=== PATIENT | male | born 1950 | race Caucasian/White ===

== ENCOUNTER 2016-11-07 13:53 | Inpatient (IN) | payer MEDICARE ==
[~2016-11-07] VITALS: Ht 170.2 cm; Wt 78.0 kg
--- NOTE | 2016-11-07 13:58 | NUR ---
BBRA 877 coming from home complaining of generalized weakness and unable to eat. Pt gowned and placed on cont monitoring, nad rr even and unlabored. skin is warm and non diaphoretic. seen and evaluated by dr quintanilla
[2016-11-07] MEDS ORDERED: IV NS 0.9% 1,000 ML ONE (14:10)
[2016-11-07] MEDS ORDERED: IV SET PRIMARY PUMP SET 1 EA INFUS.SET MC ONE (14:10)
[2016-11-07 14:20] LABS: BASOPHILS # (AUTO) 0.1 /CMM (0.0-0.2); BASOPHILS % (AUTO) 1.9 % (0.0-2.0); EOSINOPHILS # (AUTO) 1.1 /CMM (0.0-0.7); EOSINOPHILS % (AUTO) 16.7 % (0.0-6.0); HEMATOCRIT 50 % (39-51); HEMOGLOBIN 16.9 g/dL (13.5-17.5); LYMPHOCYTES # (AUTO) 1.1 /CMM (0.8-4.8); LYMPHOCYTES % (AUTO) 15.5 % (20.0-44.0); MEAN CORPUSCULAR HEMOGLOBIN 30 PG (26.0-33.0); MEAN CORPUSCULAR HGB CONC 34 g/dl (31.0-36.0); MEAN CORPUSCULAR VOLUME 88 fL (80-96); MONOCYTES # (AUTO) 0.6 /CMM (0.1-1.30); MONOCYTES % (AUTO) 8.8 % (2.0-12.0); NEUTROPHILS % (AUTO) 57.1 % (43.0-81.0); PLATELET COUNT (AUTO) 141 /CMM (150-450); RDW COEFFICIENT OF VARIATION 13.7 (11.5-15.0); RED BLOOD CELL COUNT(AUTO) 5.71 MIL/uL (4.5-6.0); WHITE BLOOD COUNT (AUTO) 6.9 K/uL (4.3-11.0)
[2016-11-07 14:29] LABS: CREATININE 2.9 mg/dL (0.6-1.3); POTASSIUM 3.2 mmol/L (3.5-5.1)
[2016-11-07] MEDS ORDERED: IV NS 0.9% 1,000 ML BAG IV ONE ×2 (14:30→18:30)
[2016-11-07 14:34] LABS: INR 1.17 (0.87-1.13); PROTHROMBIN TIME 12.3 SECS (9.5-12.7)
[2016-11-07 14:37] LABS: TROPONIN I 0.184 ng/mL (0.00-0.056)
[2016-11-07 14:41] LABS: ALBUMIN 2.7 g/dL (3.4-5.0); BILIRUBIN,DIRECT 0.2 mg/dL (0.0-0.2); BILIRUBIN,TOTAL 0.5 mg/dL (0.2-1.0); TOTAL PROTEIN, SERUM 8.9 g/dL (6.4-8.2)
[2016-11-07 15:07] LABS: LACTIC ACID 1.9 mmol/L (0.4-2.0)
--- NOTE | 2016-11-07 15:11 | NUR ---
PT TRANSPORTED TO CT IN STABLE CONDITION
--- NOTE | 2016-11-07 15:53 | NUR ---
tele [phone]
[2016-11-07] MEDS ORDERED: POTASSIUM CHLORIDE 20 MEQ TAB.PRT.SR PO ONE ×5 (16:00→18:30)
[2016-11-07] MEDS ORDERED: SULFAMETH/TRIMETH 800/160 MG 1 UDTAB TABLET PO ONE ×3 (16:00→16:21)
[2016-11-07] MEDS ORDERED: ASPIRIN 325 MG TABLET PO ONE (16:00)
--- NOTE | 2016-11-07 16:00 | NUR ---
PT RESTING COMFORTABLY IN BED, NAD NOTED. NO CHANGE SINCE PRESENTATION. DENIES PAIN.
[2016-11-07] MEDS ORDERED: ASPIRIN 325 MG TABLET ONE ×2 (16:13→16:21)
--- NOTE | 2016-11-07 16:35 | NUR ---
Report given to Arjun JOHNSON for cont of care
--- NOTE | 2016-11-07 16:41 | NUR ---
transfferred pt to the floor via acls protocol
[2016-11-07 16:45] VITALS: BP 142/79
--- NOTE | 2016-11-07 17:12 | NUR ---
CRIMINAL COURT JUDGE ADMITTING NOTES PATIENT ADMITTED TO UNIT ART 1700H [facility]IA [employer] ALERT AND ORIENTED X3 WITH DIAGNOSIS OF GENERALIZED WEAKNESS AND UN-ABLE TO EAT X1 DAY AND POOR APPETITE FOR SEVERAL DAYS DUE TO WEAKNESS VERBALIZED BY PATIENT. PATIENT WITH SIGNIFICANT DIAGNOSIS OF HTN AND HIV WHICH IS UNTREATED. ABLE TO VERBALIZED NEEDS AND WANTS, NO COMPLAINTS OF PAIN AT THIS TIME. TRANSFERRED TO BED COMFORTABLY. ALL ROUTINE ASSESSMENT DONE. V/S CHECKED AND RECORDED. SKIN ASSESSMENT DONE AND NOTED WITH SUPERFICIAL SKIN TEAR TO LOWER LEFT BACK 1CM X 1CM. GENERALIZED RASH NOTED TO BODY AND FACE, DARK DISCOLORATION NOTED TO ANTERIOR LEFT LOWER LEG AND LEFT KNEE. PHOTOS TAKEN AND FILED IN THE CHART. PATIENT PLACED ON TELE-MONITORING WITH INITIAL READING OF SR WITH HR OF 79M NO COMPLAINTS OF CHEST PAIN. PATIENT ALSO PLACED ON 02 INHALATION VIA N/C @ 2LPM DUE TO MILD SOB ON EXERTION, 02 SAT 97%. CALL LIGHT KEEP WITHIN REACH, BED LOW AND LOCKED. ALLSAFETY MEASURES ENFORCED. WILL CONTINUE TO MONITOR ACCORDINGLY AND WILL ENDORSED TO CAMPGROUND ATTENDANT FOR CONTINUITY OF CARE.
--- NOTE | 2016-11-07 18:12 | NUR ---
RN NOTES POST SEPSIS ASSESSMENT UN-ABLE TO ASSESS AT THIS TIME BECAUSE IV FLUIDS OF NS FROM EMERGENCY ROOM TO IV ACCESS TO LEFT ANTECUBITAL AREA GAUGE 20 STILL WITH 500ML LEFT, NO SIGNS OF INFILTRATION NOTED TO SITE. IVF OF NS ORDERED @ 1830H WILL BE ADMINISTERED AFTER ER IV FLUIDS FINISHED. WILL ENDORSED TO RESISTANCE MACHINE WELDER SETTER TO HANG NEW ORDER OF IVF AND DO POST ASSESSMENT THEN WILL INFORMED MD ORDERED. Addendum: 11/07/16 at 2049 by ANNA MARIE DENNEY RN Amended: Links added.
[2016-11-07] MEDS ORDERED: ACETAMINOPHEN 650 MG/20.3 ML UDC NG PRN (18:30)
[2016-11-07] MEDS ORDERED: MORPHINE SULFATE INJ 2 MG/ML DISP.SYRIN IV PRN (18:30)
[2016-11-07] MEDS ORDERED: VANCOMYCIN 1 GM in IV D5W 250 ML IV ONE (18:30)
[2016-11-07] MEDS ORDERED: FEE PK DOSING 1 MIN EA MC ONE (18:43)
[2016-11-07] MEDS ORDERED: SECONDARY IV SET 1 EA INFUS.SET MC ONE ×2 (19:00→21:21)
--- NOTE | 2016-11-07 19:30 | NUR ---
TELE/RN NOTES RECEIVED PT. SITTING UP IN BED EATING DINNER. PT. IS AWAKE, ALERT AND ORIENTED X3. BREATHING EVEN AND UNLABORED ON 2LPM O2 VIA NC. PT. WITH NO SOB, RESPIRATORY DISTRESS OR COMPLAINTS OF PAIN NOTED AT THIS TIME. PT. WITH EXTERNAL MANAGER GENERATION, PRESENT AND INTACT CURRENT RHYTHM = SINUS RHYTHM HR 82. PT. WITH LEFT AC 20 GAUGE PERIPHERAL IV PRESENT, PATENT AND INTACT ADMINISTERING TO PT. 1L NS IV FLUID FROM THE ER WITH ABOUT 500 ML REMAINING IN THE BAG. PER DAYSHIFT NURSE DR. DHALIWAL ORDERED SEPSIS PROTOCOL ON PT. DAYSHIFT NURSE SCANNED THE BAG FOR IV FLUIDS HOWEVER THEY ARE NOT INFUSING YET DUE TO ER FLUIDS STILL INFUSING. PT. TOLERATING WELL. NO S/S OF FEVER OR PAIN NOTED AT THIS TIME. NO S/S OF INFILTRATION AT IV SITE. WILL ADMINISTER TO PT. IV FLUIDS ORDERED ONCE PREVIOUS ER FLUIDS ARE COMPLETED INFUSING. BED IN LOWEST POSITION, CALL LIGHT WITHIN REACH, WILL CONTINUE TO MONITOR.
[2016-11-07 20:00] VITALS: BP 135/73
[2016-11-07] MEDS ORDERED: VANCOMYCIN 1 GM in IV D5W 250 ML IV SCH (20:00)
--- NOTE | 2016-11-07 20:00 | NUR ---
TELE/RN NOTES PT. REFUSING VEGA CATHETER INSERTION AT THIS TIME. PT. STATES HE CAN VOID ON HIS OWN AND HE DOESN'T WANT IT. EDUCATED PT. ON IMPORTANCE OF MONITORING STRICT INTAKE AND OUTPUT. WILL CONTINUE TO MONITOR PT. URINE OUTPUT AND COLLECT URINE FOR URINE CULTURE WHEN PT VOIDS. PER REPAIRER HELPER TRAINING DEVELOPER PT. JUST VOIDED 200ML URINE IN URINAL. PT. URINE DISPOSED OF BEFORE SAMPLE COULD BE TAKEN FOR URINE CULTURE. WILL CONTINUE TO MONITOR.
[2016-11-07] MEDS: PIPERACILLIN /TAZOBACTAM 2.25 G in IV D5W 50 ML IV SCH (20:30)
--- NOTE | 2016-11-07 21:08 | NUR ---
TELE/RN NOTES NOTIFIED MD CERDA PT. IS ADMITTED FOR SEPSIS, INITIAL LACTIC ACID 1.9 MOST RECENT LACTIC ACID AT 1910 IS 1.3 PT. 1L IV BOLUS OF NS FROM THE ER JUST FINISHED ADMINISTERING TO PT. PT. WITH FEVER OF 100F. ADMINISTERED TO PT. TYLENOL 650MG PRN FEVER ORDERED AND IMPLEMENTED COOLING MEASURES. PT. VOMITED 10 MINUTES AFTER TYLENOL ADMINISTRATION. PER DR. CERDA CONTINUE TO MONITOR PT. AND CONTINUE WITH SEPSIS FLUID CHALLENGE PER PROTOCOL ORDERED. WILL CARRY OUT ORDERS AND WILL CONTINUE TO MONITOR PT.
--- NOTE | 2016-11-07 21:20 | NUR ---
TELE/RN NOTES NOTIFIED MD CERDA PT. REQUESTING NAUSEA MEDICATION. PT. WITH NO NAUSEA MEDICATION ORDERED AT THIS TIME. PER MD CERDA NEW ORDER: ZOFRAN 4MG IV Q6HR PRN NAUSEA/VOMITING. WILL CARRY OUT ORDER. WILL CONTINUE TO MONITOR.
[2016-11-07] MEDS ORDERED: ONDANSETRON HCL/PF 4 MG/2 ML VIAL IV PRN (21:30)
--- NOTE | 2016-11-07 21:35 | NUR ---
TELE/RN NOTES PT. STATES HE IS FEELING BETTER AND DOES NOT WANT NAUSEA MEDICATION AT THIS TIME. EDUCATED PT. TO NOTIFY NURSE IF HE BEGINS TO FEEL NAUSEOUS AND NAUSEA MEDICATION CAN BE ADMINISTERED AT THAT TIME IF WANTED BY PT. WILL CONTINUE TO MONITOR.
--- NOTE | 2016-11-07 22:30 | NUR ---
TELE/RN NOTES PT. TEMPERATURE TRENDING DOWN. PT. CURRENT TEMPERATURE IS 99.2F. WILL CONTINUE COOLING MEASURES AND WILL CONTINUE TO MONITOR. PT. STATES HE HAS NO NEEDS AT THIS TIME AND IS COMFORTABLE. WILL CONTINUE TO MONITOR.
[2016-11-08] VITALS: BP 135/88
[2016-11-08] MEDS ORDERED: PIPERACILLIN /TAZOBACTAM 3.375 G in IV D5W 50 ML IV SCH ×2
[2016-11-08] MEDS ORDERED: IV NS 0.9% 1,000 ML ONE (00:28)
--- NOTE | 2016-11-08 02:15 | NUR ---
TELE/RN NOTES PT. SEPSIS IV FLUIDS COMPLETED AND RE-ASSESSMENT DOCUMENTED. PT. IN STABLE CONDITION. VITAL SIGNS STABLE. UNABLE TO OBTAIN URINE FOR URINE CULTURE AT THIS TIME PT. VOIDING IN DIAPER. PT. CONTINUES TO REFUSE VEGA CATHETER INSERTION. WILL CONTINUE TO MONITOR AND WILL ATTEMPT AGAIN AT A LATER TIME. WILL CONTINUE TO MONITOR.
[2016-11-08] MEDS: PIPERACILLIN /TAZOBACTAM 2.25 G in IV D5W 50 ML IV SCH ×2 (06:14→10:46)
[2016-11-08 06:33] LABS: BASOPHILS % (AUTO) 0.3 % (0.0-2.0); EOSINOPHILS # (AUTO) 1.7 /CMM (0.0-0.7); EOSINOPHILS % (AUTO) 19.2 % (0.0-6.0); HEMATOCRIT 48 % (39-51); HEMOGLOBIN 15.8 g/dL (13.5-17.5); LYMPHOCYTES # (AUTO) 1.4 /CMM (0.8-4.8); LYMPHOCYTES % (AUTO) 16.5 % (20.0-44.0); MEAN CORPUSCULAR HEMOGLOBIN 30 PG (26.0-33.0); MEAN CORPUSCULAR HGB CONC 33 g/dl (31.0-36.0); MEAN CORPUSCULAR VOLUME 90 fL (80-96); MONOCYTES # (AUTO) 0.5 /CMM (0.1-1.30); MONOCYTES % (AUTO) 5.4 % (2.0-12.0); NEUTROPHILS # (AUTO) 5.1 /CMM (1.8-8.9); NEUTROPHILS % (AUTO) 58.6 % (43.0-81.0); PLATELET COUNT (AUTO) 144 /CMM (150-450); RDW COEFFICIENT OF VARIATION 15.1 (11.5-15.0); RED BLOOD CELL COUNT(AUTO) 5.33 MIL/uL (4.5-6.0); WHITE BLOOD COUNT (AUTO) 8.6 K/uL (4.3-11.0)
[2016-11-08 06:57] LABS: ALBUMIN 2.3 g/dL (3.4-5.0); BILIRUBIN,TOTAL 0.6 mg/dL (0.2-1.0); CALCIUM, SERUM 7.4 mg/dL (8.5-10.1); CREATININE 2.5 mg/dL (0.6-1.3); POTASSIUM 3.8 mmol/L (3.5-5.1); TOTAL PROTEIN, SERUM 7.9 g/dL (6.4-8.2)
--- NOTE | 2016-11-08 07:00 | NUR ---
TELE/RN NOTES PT. LYING DOWN IN BED RESTING. BREATHING EVEN AND UNLABORED ON 2LPM O2 VIA NC. PT. WITH NO SOB, RESPIRATORY DISTRESS OR COMPLAINTS OF PAIN NOTED AT THIS TIME. PT. WITH EXTERNAL BAR STAFF, PRESENT AND INTACT CURRENT RHYTHM = SINUS RHYTHM HR 87. PT. WITH LEFT AC 20 GAUGE IV SALINE LOCK PRESENT, PATENT AND INTACT NO S/S OF FEVER OR PAIN NOTED AT THIS TIME. PT. VITAL SIGNS STABLE. COOLING MEASURES EFFECTIVE. ALL PT. NEEDS MET. BED IN LOWEST POSITION, CALL LIGHT WITHIN REACH, WILL ENDORSE TO DAYSHIFT NURSE FOR CONTINUITY OF CARE.
[2016-11-08 07:17] LABS: INR 1.05 (0.87-1.13); PROTHROMBIN TIME 11.4 SECS (9.5-12.7)
[2016-11-08 07:18] LABS: TROPONIN I 0.262 ng/mL (0.00-0.056)
[2016-11-08 07:21] LABS: CREATINE KINASE MB 0.7 ng/mL (0-3.6)
[2016-11-08 08:00] VITALS: BP 142/74
--- NOTE | 2016-11-08 08:25 | NUR ---
RN AM NOTES RECEIVE PATIENT AWAKE, ALERT AND ORIENTED X3, NO COMPLAINTS OF PAIN. IN STABLE CONDITION, WILL CONTINUE TO MONITOR.
[2016-11-08 09:07] LABS: ANISOCYTOSIS 1+; EOSINOPHILS % (MANUAL) 21 % (0-4); LYMPHOCYTES % (MANUAL) 6 % (16-48); MONOCYTES % (MANUAL) 5 % (0-11.0); NEUTROPHILS % (MANUAL) 68 (42-76); PLATELET ESTIMATE DECREASED
[2016-11-08] MEDS: PANTOPRAZOLE 40 MG VIAL IV SCH (10:46)
[2016-11-08] MEDS ORDERED: Z GUARD REMEDY 2 OZ OINT TP PRN (13:30)
--- NOTE | 2016-11-08 13:31 | NUR ---
WOUND CARE CONSULT; PT PRESENTS WITH INCONTINENCE. PT HAS RED SKIN TO CHEST, ABDOMEN AND BACK. DRY TINY SCABS NOTED TO LOWER LEGS, PRESENT ON ADMISSION. DEFER TO MD FOR SKIN REDNESS. ALL SKIN PROTECTION MEASURES IN PLACE AND DISCUSSED WITH NURSING STAFF. PT ON COMFORT GEL MATTRESS. WILL SEE QING. IN AGREEMENT WITH PLAN OF CARE. Addendum: 11/08/16 at 1333 by GEORGE SOTO WNDNU Amended: Links added.
[2016-11-08] MEDS: IV NS 0.9% 1,000 ML IV PRN ×2 (14:19→20:20)
[2016-11-08] MEDS: Z GUARD REMEDY 2 OZ OINT TP SCH (14:24)
[2016-11-08 16:00] VITALS: BP 138/76
[2016-11-08 17:05] LABS: CREATININE, URINE 88.4 MG/DL (30.0-125.0)
[2016-11-08 17:10] LABS: APPEARANCE,URINE SL CLOUDY (CLEAR); BILIRUBIN,URINE NEGATIVE (NEGATIVE); BLOOD, URINE 1+ Ery/uL (NEGATIVE); COLOR,URINE YELLOW (YELLOW); KETONES,URINE NEGATIVE (NEGATIVE); LEUKOCYTE ESTERASE ,URINE NEGATIVE (NEGATIVE); NITRITE, URINE NEGATIVE (NEGATIVE); PROTEIN,URINE 1+ mg/dl (NEGATIVE); UGLUCOSE NEGATIVE (NEGATIVE)
[2016-11-08 17:19] LABS: ADD URINE CULTURE NO; BACTERIA,URINE None seen /HPF (None Seen); SQUAMOUS EPITHELIAL CELL,UR Rare /HPF (None Seen); WBC,URINE 0-2 /HPF (0-3)
--- NOTE | 2016-11-08 17:38 | NUR ---
PATIENT STILL REFUSING TO HAVE VEGA CATHETER INSERTED. HAD 2 LOOSE BOWEL MOVEMENTS AND CAN VOID ON HIS OWN. PATIENT STILL HAS URGE TO DEFECATE AND URINATE AND CAN CALL STAFF TO HELP HIM. CANNOT AMBULATE TO BATHROOM, EVEN IF ASSISTED.
[2016-11-08 17:57] LABS: EOSINOPHIL,URINE None Seen
--- NOTE | 2016-11-08 18:54 | NUR ---
RN PM NOTES PATIENT STILL REFUSED VEGA. IN STABLE CONDITION, NORMALLY MOANS, BUT DENIES ANY PAIN. ON IV FLUID, IV PATENT AND IN PLACE. WILL ENDORSE TO NEXT SHIFT
--- NOTE | 2016-11-08 20:00 | NUR ---
MS/RN OPENING NOTES PATIENT AWAKE, FRIEND AT BEDSIDE. ON 2LPM O2 VIA NC, NO SOB OR RESPIRATORY DISTRESS NOTED. DENIES PAIN. IV TO RIGHT WRIST RUNNING NS AT 125ML/HR ORDERED. NO SIGNS OF BLEEDING, LEAKING OR INFILTRATION NOTED. FRIEND REQUESTING THAT HE BE POINT OF CONTACT FOR RELEASE OF INFORMATION. BED IN LOW/LOCKED POSITION, CALL LIGHT IN REACH. BED RAILS UPX2. WILL CONTINUE TO MONITOR
[2016-11-08] MEDS: NYSTATIN (PYXIS) 500,000 UNIT/5 ML ORAL.SUSP PO SCH (20:20)
[2016-11-08] MEDS: LORATADINE 10 MG TABLET PO SCH (20:20)
[2016-11-08] MEDS: LEVOFLOXACIN (250MG) 250 MG TABLET PO SCH (20:20)
[2016-11-08] MEDS: LINEZOLID 600 MG TABLET PO SCH (20:20)
[2016-11-08 20:56] VITALS: BP 123/79
[2016-11-09] VITALS (7 sets, daily range): BP systolic 110–141; BP diastolic 61–90
[2016-11-09] MEDS: IV NS 0.9% 1,000 ML IV PRN ×2 (05:12→22:56)
--- NOTE | 2016-11-09 07:24 | NUR ---
MS/RN CLOSING NOTES PATIENT ASLEEP, EASILY AROUSABLE TO NAME. A/OX3, ON 2LPM O2 VIA NC, NO SOB OR DISTRESS NOTED. BREATHING EVEN AND UNLABORED. IV TO RIGHT WRIST RUNNING NS @125ML/HR. DENIES PAIN AT THIS TIME. DAY SHIFT RN TO FOLLOW UP WITH PATIENT'S APPROVAL TO HAVE RELEASE OF INFORMATION FOR FRIEND. MADE PATIENT COMFORTABLE THROUGHOUT SHIFT, NO ACUTE CHANGES OVERNIGHT. BED IN LOW/LOCKED POSITION WITH CALL LIGHT IN REACH. ENDORSED TO AM SHIFT YAJAIRA.
[2016-11-09 07:38] LABS: *BASOS 0 % (.); *EOS 12 % (.); *EOS, ABSOLUTE 0.6 x10E3/uL (0.0-0.4); *HCT 48.4 % (37.5-51.0); *HGB 16.9 g/dL (12.6-17.7); *IMMATURE GRANULOCYTES 0 % (.); *LYMPHOCYTES 25 % (.); *LYMPHS, ABSOLUTE 1.2 x10E3/uL (0.7-3.1); *MCH 31.1 pg (26.6-33.0); *MCHC 34.9 g/dL (31.5-35.7); *MCV 89 fL (79-97); *MONOCYTES 5 % (.); *MONOS, ABSOLUTE 0.3 x10E3/uL (0.1-0.9); *NEUTROPHILS 58 % (.); *NEUTROPHILS, ABSOLUTE 2.8 x10E3/uL (1.4-7.0); *PLT 146 x10E3/uL (150-379); *RBC 5.44 x10E6/uL (4.14-5.80); *RDW 15.1 % (12.3-15.4); *WBC 4.8 x10E3/uL (3.4-10.8)
[2016-11-09 07:40] LABS: BASOPHILS % (AUTO) 0.2 % (0.0-2.0); EOSINOPHILS # (AUTO) 1.7 /CMM (0.0-0.7); HEMATOCRIT 44 % (39-51); HEMOGLOBIN 14.6 g/dL (13.5-17.5); LYMPHOCYTES # (AUTO) 1.4 /CMM (0.8-4.8); LYMPHOCYTES % (AUTO) 23.2 % (20.0-44.0); MEAN CORPUSCULAR HEMOGLOBIN 30 PG (26.0-33.0); MEAN CORPUSCULAR HGB CONC 33 g/dl (31.0-36.0); MEAN CORPUSCULAR VOLUME 90 fL (80-96); MONOCYTES # (AUTO) 0.3 /CMM (0.1-1.30); MONOCYTES % (AUTO) 4.3 % (2.0-12.0); NEUTROPHILS # (AUTO) 2.8 /CMM (1.8-8.9); NEUTROPHILS % (AUTO) 44.3 % (43.0-81.0); PLATELET COUNT (AUTO) 111 /CMM (150-450); RDW COEFFICIENT OF VARIATION 14.9 (11.5-15.0); RED BLOOD CELL COUNT(AUTO) 4.86 MIL/uL (4.5-6.0); WHITE BLOOD COUNT (AUTO) 6.3 K/uL (4.3-11.0)
[2016-11-09 07:51] LABS: CREATININE 2.1 mg/dL (0.6-1.3); MAGNESIUM 1.3 mg/dL (1.8-2.4); PHOSPHORUS 2.3 mg/dL (2.5-4.9); POTASSIUM 3.3 mmol/L (3.5-5.1)
--- NOTE | 2016-11-09 08:00 | NUR ---
MS RN NOTES PATIENT IN BED RESTING NO SOB OR ACUTE DISTRESS NOTED. REPORTS BEING TIRED. BED IN LOW LOCKED POSITION. CALL LIGHT WITHIN REACH. WILL CONTINUE TO MONITOR.
[2016-11-09] MEDS: NYSTATIN (PYXIS) 500,000 UNIT/5 ML ORAL.SUSP PO SCH ×3 (08:31→18:38)
[2016-11-09] MEDS: LORATADINE 10 MG TABLET PO SCH (08:31)
[2016-11-09] MEDS: LINEZOLID 600 MG TABLET PO SCH ×2 (08:31→21:15)
[2016-11-09] MEDS: PANTOPRAZOLE 40 MG VIAL IV SCH (08:31)
[2016-11-09] MEDS: Z GUARD REMEDY 2 OZ OINT TP SCH (08:32)
[2016-11-09] MEDS ORDERED: SECONDARY IV SET 1 EA INFUS.SET MC ONE (10:59)
[2016-11-09] MEDS ORDERED: POTASSIUM PHOSPHATE MM 15 MMOL in IV D5W 250 ML IV SCH (11:00)
[2016-11-09] MEDS: Magnesium 1GM/D5W 100ML PREMIX 100 ML IV SCH ×2 (11:05→12:33)
[2016-11-09 11:56] LABS: BAND % (MANUAL) 5 % (0.0-5.0); EOSINOPHILS % (MANUAL) 33 % (0-4); LYMPHOCYTES % (MANUAL) 15 % (16-48); MONOCYTES % (MANUAL) 1 % (0-11.0); NEUTROPHILS % (MANUAL) 46 (42-76)
[2016-11-09 11:57] LABS: PLATELET ESTIMATE DECREASED
--- NOTE | 2016-11-09 12:13 | NUR ---
MS RN NOTES CALL RECEIVED FROM LAB REPORTING TROPONIN OF 0.[address] DHALIWAL AND [address] DUONG ORDERS TO CONTINUE MONITORING.
[2016-11-09] MEDS: POTASSIUM PHOSPHATE MM 7.5 MMOL in IV D5W 100 ML IV SCH ×2 (13:42→16:31)
--- NOTE | 2016-11-09 14:20 | NUR ---
MS RN NOTES CALL RECEIVED FROM LAB WITH ELEVATED TROP LEVELS OF 0.[address] RANGEL STATES TO CONTINUE MONITORING NO ORDERS AT THIS TIME.
--- NOTE | 2016-11-09 15:00 | NUR ---
MS RN NOTES PATIENT RESTING COMFORTABLE IN BED, DENIES ANY SOB OR CHEST PAIN. STATES HE FEELS BETTER JUST TIRED. VS WNL. 133/70 PULSE 88, RESPIRATION 20 WILL CONTINUE TO MONITOR CLOSELY.
[2016-11-09] MEDS ORDERED: IV SET PRIMARY PUMP SET 1 EA INFUS.SET MC ONE (15:20)
[2016-11-09] MEDS: LEVOFLOXACIN (250MG) 250 MG TABLET PO SCH (18:38)
[2016-11-09 19:01] LABS: *% CD 8 POS. LYMPH 40.3 % (12.0-35.5); *ABSOLUTE CD 4 HELPER 312 /uL (359-1519); *ABSOLUTE CD 8 SUPPRESSOR 484 /uL (109-897); *CD4/CD8 RATIO 0.65 (0.92-3.72)
--- NOTE | 2016-11-09 19:34 | NUR ---
MS/RN OPENING NOTES PATIENT RESTING COMFORTABLY, A/OX3, ON 2LPM O2 VIA NC. NO SOB OR DISTRESS NOTED. BREATHING EVEN AND UNLABORED. DENIES PAIN AT THIS TIME. IV TO RIGHT WRIST PATENT AND INTACT RUNNING IVF ORDERED. NO SIGNS OF INFILTRATION NOTED. BED IN LOW/LOCKED POSITION WITH CALL LIGHT IN REACH. WILL CONTINUE TO MONITOR
--- NOTE | 2016-11-09 19:36 | NUR ---
MS RN NOTES PATIENT IN BED RESTING NO SOB OR ACUTE DISTRESS NOTED. ALL DUE MEDICATIONS GIVEN ALL NEEDS MET. WILL ENDORSE TO PM SHIFT YAJAIRA.
--- NOTE | 2016-11-10 02:30 | NUR ---
MS/RN NOTES PATIENT ASLEEP, BREATHING EVEN AND UNLABORED. WILL CONTINEU TO MONITOR
[2016-11-10 06:09] LABS: BASOPHILS % (AUTO) 0.4 % (0.0-2.0); EOSINOPHILS # (AUTO) 1.4 /CMM (0.0-0.7); EOSINOPHILS % (AUTO) 18.2 % (0.0-6.0); HEMATOCRIT 41 % (39-51); HEMOGLOBIN 13.6 g/dL (13.5-17.5); LYMPHOCYTES % (AUTO) 26.7 % (20.0-44.0); MEAN CORPUSCULAR HEMOGLOBIN 30 PG (26.0-33.0); MEAN CORPUSCULAR HGB CONC 34 g/dl (31.0-36.0); MEAN CORPUSCULAR VOLUME 89 fL (80-96); MONOCYTES # (AUTO) 0.4 /CMM (0.1-1.30); MONOCYTES % (AUTO) 5.7 % (2.0-12.0); NEUTROPHILS # (AUTO) 3.7 /CMM (1.8-8.9); PLATELET COUNT (AUTO) 103 /CMM (150-450); RED BLOOD CELL COUNT(AUTO) 4.56 MIL/uL (4.5-6.0); WHITE BLOOD COUNT (AUTO) 7.6 K/uL (4.3-11.0)
[2016-11-10 06:33] LABS: TROPONIN I 0.848 ng/mL (0.00-0.056)
[2016-11-10 06:58] LABS: ALBUMIN 1.9 g/dL (3.4-5.0); BILIRUBIN,TOTAL 0.5 mg/dL (0.2-1.0); CALCIUM, SERUM 7.1 mg/dL (8.5-10.1); CREATININE 2.1 mg/dL (0.6-1.3); MAGNESIUM 1.8 mg/dL (1.8-2.4); PHOSPHORUS 2.3 mg/dL (2.5-4.9); POTASSIUM 3.5 mmol/L (3.5-5.1)
--- NOTE | 2016-11-10 07:15 | NUR ---
MS/RN CLOSING NOTES PATIENT ASLEEP, EASILY AROUSABLE TO NAME. REMAINS ON 2LPM O2 VIA NC, BREATHING EVEN AND UNLABORED. NO SIGNS OF DISTRESS NOTED. DENIES PAIN AT THIS TIME. MADE PATIENT COMFORTABLE THROUGHOUT SHIFT, ALL NEEDS MET AND ATTENDED TO. NO CHANGES OVERNIGHT. BED IN LOW/LOCKED POSITION, CALL LIGHT IN REACH. BED RAILS UPX2. ENDORSED TO AM SHIFT YAJAIRA.
--- NOTE | 2016-11-10 07:20 | NUR ---
MS RN OPENING RECEIVED PT A/OX3 DENIES PAIN SOB DIFFICULTY BREATHING. NC ON WILL CHECK ROOM AIR TODAY. PT APPEARS TO HAVE LABOURED BREATHING WITH EXERTION BUT DENIES SOB OR DIFFICULTY BREATHING. PT STATES NO NEEDS AT THIST TIME AND APPEARS STABLE. PT WITH CALL LIGHT IN REACH, BED LOWERED AND LOCKED, RAILS UPX3 FOR SAFETY AND WILL ROUND Q2H OR LESS PER NEEDS.
[2016-11-10 08:00] VITALS: BP 153/96
[2016-11-10] MEDS: IV NS 0.9% 1,000 ML IV PRN (08:40)
[2016-11-10] MEDS: LINEZOLID 600 MG TABLET PO SCH ×2 (08:40→20:50)
[2016-11-10] MEDS: LORATADINE 10 MG TABLET PO SCH (08:40)
[2016-11-10] MEDS: NYSTATIN (PYXIS) 500,000 UNIT/5 ML ORAL.SUSP PO SCH ×3 (08:40→16:43)
[2016-11-10] MEDS: PANTOPRAZOLE 40 MG VIAL IV SCH (08:40)
[2016-11-10] MEDS: Z GUARD REMEDY 2 OZ OINT TP SCH (08:41)
--- NOTE | 2016-11-10 11:30 | NUR ---
MS RN NOTES STOOL SAMPLE COLLECTED. CALLED LAB
--- NOTE | 2016-11-10 13:00 | NUR ---
MS RN NOTES PATIENT WORKING WITH PT, ASKED IF HE CAN GET IN CHAIR. STATED HE SHOULD REST FIRST I DO NOT WANT HIM FALLING OUT.
[2016-11-10] MEDS ORDERED: K PHOS NEUTRAL 250 MG TABLET PO ONE (15:30)
[2016-11-10 16:00] VITALS: BP 155/95
--- NOTE | 2016-11-10 17:00 | NUR ---
MS RN NOTES FOUND PATIENT SITTING IN [place]LER NEXT TO BED WITH TABLE IN FRONT OF HIM. PATIENT STATES HE WANTS TO SIT IN CHAIR FOR DINNER. NON SLIP SOCKS ON AND CALL LIGHT IN REACH
[2016-11-10 17:03] LABS: FIBRINOGEN ACTIVITY 286 Mg/dL (213-485); INR 0.97 (0.87-1.13); PARTIAL THROMBOPLASTIN TIME 30 SEC (23-34); PROTHROMBIN TIME 10.5 SECS (9.5-12.7)
[2016-11-10 17:04] LABS: D-DIMER < 0.19 mg/L(FEU (0.17-0.50)
[2016-11-10 17:07] LABS: PLATELET COUNT (AUTO) 108 /CMM (150-450)
--- NOTE | 2016-11-10 17:25 | NUR ---
MS RN NOTES CALLED [facility]. MESSAGE TO DENISE IN ADMITTING FOR MEDICATION LIST AND ONCOLOGIST NAME. GIVEN FAX # [phone] TO FAX MEDICAL RELEASE FORM TO
[2016-11-10] MEDS: LEVOFLOXACIN (250MG) 250 MG TABLET PO SCH (18:01)
--- NOTE | 2016-11-10 18:19 | NUR ---
MS RN NOTES WENT INTO THE ROOM AND FOUND PATIENT LAYING ON FLOOR. ASKED PATIENT WHAT HAPPENED. HE STATED HE GOT OUT OF THE CHAIR AND WAS NOT ABLE TO MAKE IT TO THE BED AND DECIDED TO SIT ON THE FLOOR..ASKED PATIENT IF HE FELL AND STATES NO HE DID NOT. HEAD TO TOE COMPLETED AND NO NEW CHANGES. PT DENIES ANY PAIN AND STATES DID NOT LOSE CONSCIOUSNESS. NO SIGNS OF INJURY. VS STABLE. RE EDUCATED PATIENT ON FALL PRECAUTIONS, USING CALL LIGHT AND TO NOT GET UP WITHOUT ASSISTANCE.
--- NOTE | 2016-11-10 18:39 | NUR ---
MS RN NOTES MESSAGE LEFT TO CASE MANAGEMENT; PATIENT REQUESTING WEB PRODUCTION MANAGER CAREGIVER AND WOULD LIKE TO SEE IF ABLE
[2016-11-10 18:40] VITALS: BP 157/89
--- NOTE | 2016-11-10 18:40 | NUR ---
MS RN NOTES COOLING MEASURES INITIATED. ROOM WARM AND TURNED AIR ON, REMOVED BLANKETS FROM PATIENT. WILL GET ICE PACKS
--- NOTE | 2016-11-10 18:44 | NUR ---
Unique Id: [id number]
--- NOTE | 2016-11-10 18:47 | NUR ---
MS RN NOTES NOTIFIED MD OF PER PATIENT SITTING ON FLOOR. ALSO NOTIFIED MD PATIENT BP IS RUNNING HIGH IF WE CAN GET A PRN MEDICATION FOR HIS BP
--- NOTE | 2016-11-10 18:54 | NUR ---
MS RN NOTES PER DR DHALIWAL ORDER METOPRALOL BID 25MG PO BID START NOW. AWARE OF SLIGHTLY FEBRILE 99.6
[2016-11-10] MEDS: METOPROLOL TARTRATE 25 MG TABLET PO SCH (19:06)
--- NOTE | 2016-11-10 19:07 | NUR ---
MS RN NOTES TEMP TRENDING DOWN WITH COOLING MEASURES. WILL ENDORSE TO RN TO MONITOR IF NEEDING TYLENOL. PATIENT DENIES ANY NEW COMPLICATIONS AND STATES NO NEEDS
--- NOTE | 2016-11-10 19:20 | NUR ---
MS RN CLOSING PT DENIES PAIN, SOB, DIFFICULTY BREATHING OR PAIN. PT ALLOWING COOLING MEASURES AT THIS TIME. NO CHILLS SKIN DRY AND WARM. PT STATES NO NEEDS AT THIS TIME. ACCEPTED METOPRALOL FOR HTN. PATIENT WITH CALL LIGHT IN REACH, BED LOWERED AND LOCKED, RAILS UPX3 FOR SAFETY WITH BED ALARM ON.
[2016-11-10 20:00] VITALS: BP 154/99
--- NOTE | 2016-11-10 20:00 | NUR ---
GPS RN NOTES RECEIVED PATIENT RESTING IN BED. NO COMPLAINTS VERBALIZED AT THIS TIME. RESPIRATIONS WITHIN NORMAL LIMITS. PATIENT APPEARS TO BE COOPERATIVE. HEP LOCK AT RIGHT HAND. IVF RESUMED. WILL MONITOR PATIENT AND ATTEND TO NEEDS.
[2016-11-10] MEDS: LORAZEPAM INJ 2 MG/ML VIAL IVP PRN (21:18)
--- NOTE | 2016-11-10 21:30 | NUR ---
GPS RN NOTES PATIENT STARTED TO BE RESTLESS AND ANXIOUS. WANTING TO GET OUT OF BED. EXPRESSED DESIRE TO GO HOME. PRN ATIVAN 0.5MG GIVEN PO AT 2117 FOR ANXIETY.
[2016-11-11] MEDS ORDERED: ALBUTEROL FS 2.5 MG/0.5 ML VIAL.NEB NEB PRN
[2016-11-11] MEDS ORDERED: ALBUTEROL FS 2.5 MG/3 ML VIAL.NEB ONE ×2 (00:05→03:46)
[2016-11-11] MEDS: ALBUTEROL FS 2.5 MG/3 ML VIAL.NEB NEB SCH ×7 (00:28→23:39)
--- NOTE | 2016-11-11 00:30 | NUR ---
GPS RN NOTES PATIENT CONTINUES TO BE RESTLESS AND ANXIOUS. COMPLAINING OF DIFFICULTY OF BREATHING. O2 SAT AT 99%. RT REQUESTED TO CHECK ON PATIENT. WHEEZING NOTED. CALL MADE TO SOFTWARE PERFORMANCE ENGINEER ESDRAS THAKUR, WHO GAVE ORDERS FOR BREATHING TREATMENT. ALBUTEROL TX STARTED BY RT. WILL CONTINUE TO MONITOR PATIENT.
[2016-11-11] MEDS: IV NS 0.9% 1,000 ML IV PRN ×2 (00:56→16:47)
[2016-11-11 05:17] LABS: COMPLEMENT C3, SERUM 85 mg/dL (82-167); COMPLEMENT C4, SERUM 25 mg/dL (14-44)
--- NOTE | 2016-11-11 06:27 | NUR ---
GPS RN CLOSING NOTES PATIENT RESTED FAIRLY WELL. NO DISTRESS NOTED AT THIS TIME. TOOK MEDICATIONS WITHOUT PROBLEMS. NO LONGER RESTLESS AND ANXIOUS. CONTINUE TO MONITOR PATIENT. WILL ENDORSE TO DAY SHIFT NURSE.
[2016-11-11 06:34] LABS: BASOPHILS % (AUTO) 0.3 % (0.0-2.0); EOSINOPHILS # (AUTO) 0.2 /CMM (0.0-0.7); EOSINOPHILS % (AUTO) 3.2 % (0.0-6.0); HEMATOCRIT 44 % (39-51); HEMOGLOBIN 14.7 g/dL (13.5-17.5); LYMPHOCYTES # (AUTO) 2.8 /CMM (0.8-4.8); LYMPHOCYTES % (AUTO) 49.9 % (20.0-44.0); MEAN CORPUSCULAR HEMOGLOBIN 30 PG (26.0-33.0); MEAN CORPUSCULAR HGB CONC 34 g/dl (31.0-36.0); MEAN CORPUSCULAR VOLUME 90 fL (80-96); MONOCYTES # (AUTO) 0.7 /CMM (0.1-1.30); NEUTROPHILS % (AUTO) 34.6 % (43.0-81.0); PLATELET COUNT (AUTO) 107 /CMM (150-450); RDW COEFFICIENT OF VARIATION 15.2 (11.5-15.0); RED BLOOD CELL COUNT(AUTO) 4.87 MIL/uL (4.5-6.0); WHITE BLOOD COUNT (AUTO) 5.7 K/uL (4.3-11.0)
[2016-11-11 06:43] LABS: CALCIUM, SERUM 7.7 mg/dL (8.5-10.1); CREATININE 1.8 mg/dL (0.6-1.3); MAGNESIUM 1.7 mg/dL (1.8-2.4); PHOSPHORUS 3.5 mg/dL (2.5-4.9); POTASSIUM 3.9 mmol/L (3.5-5.1)
--- NOTE | 2016-11-11 07:56 | NUR ---
RN AM NOTES RECEIVED PATIENT IN STABLE CONDITION. ALERT AND ORIENTED X3. SKIN COLOR APPROPRIATE TO ETHNICITY. NO SOB OR DISTRESS NOTED. PATIENT DENIES PAIN. WILL CONTINUE TO MONITOR
[2016-11-11 08:00] VITALS: BP 167/91
[2016-11-11] MEDS: PANTOPRAZOLE 40 MG VIAL IV SCH (08:46)
[2016-11-11] MEDS: LINEZOLID 600 MG TABLET PO SCH (08:46)
[2016-11-11] MEDS: NYSTATIN (PYXIS) 500,000 UNIT/5 ML ORAL.SUSP PO SCH ×3 (08:46→16:47)
[2016-11-11] MEDS: METOPROLOL TARTRATE 25 MG TABLET PO SCH ×2 (08:47→17:12)
[2016-11-11] MEDS: LORATADINE 10 MG TABLET PO SCH (08:47)
--- NOTE | 2016-11-11 09:53 | NUR ---
RT TX GIVEN LATE, MEDS WERE UNAVAILABLE. Addendum: 11/11/16 at 0957 by HALLEY BEARD RT Amended: Links added.
[2016-11-11] MEDS ORDERED: SECONDARY IV SET 1 EA INFUS.SET MC ONE (10:35)
[2016-11-11] MEDS: Magnesium 1GM/D5W 100ML PREMIX 100 ML IV SCH ×2 (10:44→10:51)
[2016-11-11] MEDS: Z GUARD REMEDY 2 OZ OINT TP SCH (10:45)
--- NOTE | 2016-11-11 10:46 | NUR ---
MAGNESIUM TO BE HUNG AT 1050, SCANNED EARLY Addendum: 11/11/16 at 1626 by TAI SALAS RN MAGNESIUM GIVEN AT 1050
[2016-11-11] MEDS ORDERED: Magnesium 1GM/D5W 100ML PREMIX 100 ML IV SCH (11:00)
[2016-11-11 16:00] VITALS: BP 146/89
--- NOTE | 2016-11-11 16:26 | NUR ---
ASKED PATIENT TO CALL [facility] WITH ASSISTANCE OF FRIEND. FAXING CONSENT FORM TO CLINIC FOR LIST OF MEDICATIONS
[2016-11-11] MEDS ORDERED: IV SET PRIMARY 1 EA INFUS.SET MC ONE (16:39)
[2016-11-11] MEDS ORDERED: IV SET PRIMARY PUMP SET 1 EA INFUS.SET MC ONE (18:10)
[2016-11-11] MEDS ORDERED: TRIA1TAB3 PO (18:52)
[2016-11-11] MEDS ORDERED: RILP25TA PO (18:52)
[2016-11-11] MEDS ORDERED: DOLU50TA PO (18:52)
[2016-11-11] MEDS ORDERED: DIPH25CA83 PO (18:52)
[2016-11-11] MEDS ORDERED: CLOP75TA2 PO (18:52)
[2016-11-11] MEDS ORDERED: LEVO25TA9 PO (18:52)
[2016-11-11] MEDS ORDERED: CHOL100044 PO (18:52)
[2016-11-11] MEDS ORDERED: AMLO10TA4 PO (18:52)
[2016-11-11] MEDS ORDERED: KETO15CR TP (18:52)
[2016-11-11] MEDS ORDERED: METO25TA20 PO (18:52)
[2016-11-11] MEDS ORDERED: FAMO40TA7 PO (18:52)
[2016-11-11] MEDS ORDERED: ATOR40TA PO (18:52)
[2016-11-11] MEDS ORDERED: TRIA15CR3 TP (18:52)
[2016-11-11] MEDS ORDERED: LOSA50TA21 PO (18:52)
--- NOTE | 2016-11-11 19:04 | NUR ---
RN PM NOTES PATIENT RESTING IN BED IN STABLE CONDITION, NO SOB, NO PAIN NO DISTRESS. WILL ENDORSE TO NEXT SHIFT
--- NOTE | 2016-11-11 19:25 | NUR ---
RN OPEN NOTES RECEIVED PATIENT AWAKE LAYING IN BED. A/O X3. NO SIGNS OF DISTRESS OR DISCOMFORT. BREATHING EVEN AND UNLABORED. PATIENT DENIES ANY PAIN AT THIS TIME. IV ACCESS IN R HAND WITH NS INFUSING, PATENT AND INTACT, NO SIGNS OF REDNESS OR INFILTRATION. BED IN LOW LOCKED POSITION WITH SIDE RAILS X2. CALL LIGHT WITHIN REACH. WILL CONTINUE TO MONITOR.
[2016-11-11 20:00] VITALS: BP 135/86
[2016-11-11 20:33] VITALS: BP 135/86
[2016-11-12] MEDS: IV NS 0.9% 1,000 ML IV PRN ×2 (01:34→12:21)
[2016-11-12] MEDS: ALBUTEROL FS 2.5 MG/3 ML VIAL.NEB NEB SCH ×6 (04:01→22:43)
[2016-11-12 07:10] LABS: *SPE A/G RATIO 0.5 (0.7-1.7); *SPE ALBUMIN 2.4 g/dL (2.9-4.4); *SPE ALPHA-1-GLOBULIN 0.2 g/dL (0.0-0.4); *SPE ALPHA-2-GLOBULIN 0.7 g/dL (0.4-1.0); *SPE BETA GLOBULIN 0.7 g/dL (0.7-1.3); *SPE GLOBULIN, TOTAL 4.5 g/dL (2.2-3.9); *SPE PROTEIN TOTAL 6.9 g/dL (6.0-8.5); *SPEGAMMA GLOBULIN 2.9 g/dL (0.4-1.8)
--- NOTE | 2016-11-12 07:26 | NUR ---
RN CLOSING NOTES PATIENT AWAKE LAYING IN BED. A/O X3. NO SIGNS OF DISTRESS OR DISCOMFORT. BREATHING EVEN AND UNLABORED. PATIENT DENIES ANY PAIN AT THIS TIME. IV ACCESS IN R HAND WITH NS INFUSING, PATENT AND INTACT, NO SIGNS OF REDNESS OR INFILTRATION. NO ACUTE CHANGES AND ALL NEEDS MET THROUGHOUT SHIFT. KEPT CLEAN DRY AND COMFORTABLE. BED IN LOW LOCKED POSITION WITH SIDE RAILS X2. CALL LIGHT WITHIN REACH. ENDORSED TO AM SHIFT FOR YAJAIRA.
--- NOTE | 2016-11-12 07:32 | NUR ---
RN AM NOTES RECEIVED PATIENT IN STABLE CONDITION, ALERT AND ORIENTED X3. NO SOB, DISTRESS OR PAIN NOTED. WILL CONTINUE TO MONITOR
[2016-11-12 07:41] LABS: BASOPHILS % (AUTO) 0.3 % (0.0-2.0); EOSINOPHILS # (AUTO) 0.5 /CMM (0.0-0.7); EOSINOPHILS % (AUTO) 8.9 % (0.0-6.0); HEMATOCRIT 42 % (39-51); HEMOGLOBIN 13.8 g/dL (13.5-17.5); LYMPHOCYTES # (AUTO) 2.5 /CMM (0.8-4.8); LYMPHOCYTES % (AUTO) 44.5 % (20.0-44.0); MEAN CORPUSCULAR HEMOGLOBIN 30 PG (26.0-33.0); MEAN CORPUSCULAR HGB CONC 33 g/dl (31.0-36.0); MEAN CORPUSCULAR VOLUME 90 fL (80-96); MONOCYTES # (AUTO) 0.5 /CMM (0.1-1.30); MONOCYTES % (AUTO) 9.5 % (2.0-12.0); NEUTROPHILS # (AUTO) 2.1 /CMM (1.8-8.9); NEUTROPHILS % (AUTO) 36.8 % (43.0-81.0); PLATELET COUNT (AUTO) 118 /CMM (150-450); RDW COEFFICIENT OF VARIATION 15.8 (11.5-15.0); WHITE BLOOD COUNT (AUTO) 5.6 K/uL (4.3-11.0)
[2016-11-12 08:00] VITALS: BP 162/94
--- NOTE | 2016-11-12 08:00 | NUR ---
NAMES OF MEDICATIONS SENT TO US VIA FAX. INFORMED MD THAT MED REC NEEDED TO BE DONE. AWARE
[2016-11-12 08:21] LABS: BILIRUBIN,TOTAL 0.8 mg/dL (0.2-1.0); CALCIUM, SERUM 7.3 mg/dL (8.5-10.1); CREATININE 1.7 mg/dL (0.6-1.3); MAGNESIUM 1.8 mg/dL (1.8-2.4); PHOSPHORUS 2.5 mg/dL (2.5-4.9); POTASSIUM 3.4 mmol/L (3.5-5.1); TOTAL PROTEIN, SERUM 7.3 g/dL (6.4-8.2)
[2016-11-12] MEDS: PANTOPRAZOLE 40 MG VIAL IV SCH (09:49)
[2016-11-12] MEDS: NYSTATIN (PYXIS) 500,000 UNIT/5 ML ORAL.SUSP PO SCH ×3 (09:57→17:10)
[2016-11-12] MEDS: METOPROLOL TARTRATE 25 MG TABLET PO SCH ×2 (09:57→17:00)
[2016-11-12] MEDS: LORATADINE 10 MG TABLET PO SCH (09:57)
[2016-11-12] MEDS: hydrALAZINE HCL 50 MG TABLET PO SCH ×3 (10:05→17:00)
[2016-11-12] MEDS: Z GUARD REMEDY 2 OZ OINT TP SCH (10:07)
[2016-11-12] MEDS: POTASSIUM CHLORIDE 20 MEQ TAB.PRT.SR PO SCH (12:21)
--- NOTE | 2016-11-12 14:00 | NUR ---
NOTIFIED LABS THAT PATIENT IS READY TO HAVE LABS DRAWN Addendum: 11/12/16 at 1714 by TAI SALAS RN NOTIFIED LAB THAT PATIENT IS READY TO HAVE LABS DRAWN
[2016-11-12] MEDS: LORAZEPAM INJ 2 MG/ML VIAL IVP PRN (14:01)
--- NOTE | 2016-11-12 14:01 | NUR ---
PATIENT ANXIOUS WAITING FOR ABD PROCEDURE, WITH SLIGHT SOB, NOT RELIEVED BY DISTRACTION OR RELAXATION EXERCISES. ADMINISTERED ATIVAN PRN ORDERED. WILL CONTINUE TO MONITOR.
--- NOTE | 2016-11-12 14:31 | NUR ---
PATIENT RELAXED AND INTERMITTENTLY NAPPING, YET AROUSABLE. WAITING FOR PROCEDURE. NPO ORDERED
[2016-11-12 16:00] VITALS: BP 156/97
[2016-11-12 17:03] LABS: CALCIUM, SERUM 7.4 mg/dL (8.5-10.1); CREATININE 1.6 mg/dL (0.6-1.3); POTASSIUM 4.3 mmol/L (3.5-5.1); TOTAL PROTEIN, SERUM 7.7 g/dL (6.4-8.2)
--- NOTE | 2016-11-12 17:11 | NUR ---
PATIENT NAPPING, YET AROUSABLE, NO COMPLAINTS OF PAIN, NO EPISODES OF ANXIETY
--- NOTE | 2016-11-12 18:43 | NUR ---
RN PM NOTES PATIENT RESTING IN BED IN STABLE CONDITION. NO SOB, DISTRESS OR AGITATION NOTED. NO FURTHER EPISODES OF ANXIETY. LABS DRAWN. ALL NEEDS MET. WILL ENDORSE TO NEXT SHIFT
--- NOTE | 2016-11-12 18:59 | NUR ---
PT NOTED WITH SLIGHT SOB DURING ULTRASOUND PROCEDURE. UNRELIEVED BY REPOSITIONING, SPO2 97-98% ON 2L O2 VIA NASAL CANNULA. LEFT MESSAGE FOR PRIMARY MD TO INFORM FOR POSSIBLE NEW ORDERS, AWAITING RESPONSE. RECOMMENDING TO SLOW DOWN RATE OF IVF INFUSION. WILL ENDORSE TO NEXT SHIFT.
--- NOTE | 2016-11-12 19:30 | NUR ---
MS RN NOTE: PATIENT RESTING IN BED, NO ACUTE DISTRESS NOTED. BREATHING EVEN AND UNLABORED, NO SOB NOTED. IV TO RIGHT HAND IN PLACE, INFUSING NS AT 125 ML/HR. PATIENT JUST FINISHED US OF ABDOMEN AND NOW ABLE TO EAT. BED LOCKED AND IN LOWEST POSITION, CALL LIGHT IN REACH. WILL CONTINUE TO MONITOR.
[2016-11-12 20:00] VITALS: BP 164/114
[2016-11-13] MEDS: LORAZEPAM INJ 2 MG/ML VIAL IVP PRN ×2 (00:38→22:22)
[2016-11-13] MEDS: ALBUTEROL FS 2.5 MG/3 ML VIAL.NEB NEB SCH ×6 (02:52→23:07)
--- NOTE | 2016-11-13 03:30 | NUR ---
MS RN NOTE: PATIENT SLEEPING IN BED, NO ACUTE DISTRESS NOTED. BREATHING EVEN AND UNLABORED, NO SOB NOTED. BED LOCKED AND IN LOWEST POSITION, CALL LIGHT IN REACH. WILL CONTINUE TO MONITOR.
--- NOTE | 2016-11-13 06:00 | NUR ---
MS RN NOTE: PATIENT RESTING IN BED, NO ACUTE DISTRESS NOTED. BREATHING EVEN AND UNLABORED, NO SOB NOTED. IV TO RIGHT HAND IN PLACE, INFUSING NS AT 125 ML/HR. BED LOCKED AND IN LOWEST POSITION, CALL LIGHT IN REACH. WILL ENDORSE TO DAY NURSE TO CONTINUE WITH PLAN OF CARE.
[2016-11-13] MEDS: IV NS 0.9% 1,000 ML IV PRN (06:27)
[2016-11-13 07:38] LABS: ALBUMIN 2.1 g/dL (3.4-5.0); BILIRUBIN,TOTAL 1.2 mg/dL (0.2-1.0); CALCIUM, SERUM 7.9 mg/dL (8.5-10.1); CREATININE 1.6 mg/dL (0.6-1.3); MAGNESIUM 1.6 mg/dL (1.8-2.4); PHOSPHORUS 2.4 mg/dL (2.5-4.9); POTASSIUM 3.6 mmol/L (3.5-5.1); TOTAL PROTEIN, SERUM 7.6 g/dL (6.4-8.2)
[2016-11-13 07:40] LABS: BASOPHILS % (AUTO) 0.4 % (0.0-2.0); EOSINOPHILS # (AUTO) 0.3 /CMM (0.0-0.7); EOSINOPHILS % (AUTO) 5.8 % (0.0-6.0); HEMATOCRIT 42 % (39-51); HEMOGLOBIN 13.9 g/dL (13.5-17.5); LYMPHOCYTES # (AUTO) 1.7 /CMM (0.8-4.8); LYMPHOCYTES % (AUTO) 38.3 % (20.0-44.0); MEAN CORPUSCULAR HEMOGLOBIN 29 PG (26.0-33.0); MEAN CORPUSCULAR HGB CONC 33 g/dl (31.0-36.0); MEAN CORPUSCULAR VOLUME 89 fL (80-96); MONOCYTES # (AUTO) 0.4 /CMM (0.1-1.30); MONOCYTES % (AUTO) 8.9 % (2.0-12.0); NEUTROPHILS % (AUTO) 46.6 % (43.0-81.0); PLATELET COUNT (AUTO) 135 /CMM (150-450); RED BLOOD CELL COUNT(AUTO) 4.73 MIL/uL (4.5-6.0); WHITE BLOOD COUNT (AUTO) 4.3 K/uL (4.3-11.0)
[2016-11-13 08:00] VITALS: BP 142/94
[2016-11-13] MEDS: PANTOPRAZOLE 40 MG VIAL IV SCH (09:37)
[2016-11-13] MEDS: NYSTATIN (PYXIS) 500,000 UNIT/5 ML ORAL.SUSP PO SCH ×3 (09:38→18:03)
[2016-11-13] MEDS: hydrALAZINE HCL 50 MG TABLET PO SCH ×3 (09:38→18:06)
[2016-11-13] MEDS: LORATADINE 10 MG TABLET PO SCH (09:38)
[2016-11-13] MEDS: POTASSIUM CHLORIDE 20 MEQ TAB.PRT.SR PO SCH (09:38)
[2016-11-13] MEDS: ISOSORBIDE DINITRATE (20MG) 20 MG TABLET PO SCH ×2 (09:39→18:06)
[2016-11-13] MEDS: METOPROLOL TARTRATE 25 MG TABLET PO SCH ×2 (09:39→18:05)
[2016-11-13] MEDS: Z GUARD REMEDY 2 OZ OINT TP SCH (09:40)
[2016-11-13] MEDS ORDERED: MAGNESIUM OXIDE 400 MG TABLET PO ONE (12:00)
[2016-11-13 14:12] LABS: HEPATITIS A AB, IgM Negative (Negative); HEPATITIS A AB, TOTAL Positive (Negative); HEPATITIS B CORE AB, IgM Negative (Negative); HEPATITIS B CORE AB, TOTAL Positive (Negative); HEPATITIS B SURFACE AB Reactive (.); HEPATITIS C VIRUS AB 0.4 s/co ratio (0.0-0.9)
[2016-11-13] MEDS ORDERED: K PHOS NEUTRAL 250 MG TABLET PO ONE (15:30)
[2016-11-13 16:00] VITALS: BP 130/86
[2016-11-13 20:00] VITALS: BP 140/92
[2016-11-14] MEDS: ALBUTEROL FS 2.5 MG/3 ML VIAL.NEB NEB SCH ×6 (03:19→22:50)
[2016-11-14 05:30] LABS: HEPATITIS Be AG Negative (Negative)
[2016-11-14 07:09] LABS: CALCIUM, SERUM 7.8 mg/dL (8.5-10.1); CREATININE 1.7 mg/dL (0.6-1.3); MAGNESIUM 1.5 mg/dL (1.8-2.4); PHOSPHORUS 2.9 mg/dL (2.5-4.9); POTASSIUM 4.3 mmol/L (3.5-5.1)
[2016-11-14 08:00] VITALS: BP 154/96
--- NOTE | 2016-11-14 08:00 | NUR ---
MS RN NOTE PT. AWAKE, ALERT AND ORIENTED X4. DENIED PAIN AND SOB. O2@ 2L VIA NC. SAO2 >96%. PT. REFUSED TO TAKE DVT PUMP. WILL APPLY LATER. SIDE RAILS UP. CALL LIGHT WITHIN REACH. MONITOR CLOSELY.
[2016-11-14] MEDS: PANTOPRAZOLE 40 MG VIAL IV SCH (08:41)
[2016-11-14] MEDS: NYSTATIN (PYXIS) 500,000 UNIT/5 ML ORAL.SUSP PO SCH ×3 (08:41→17:47)
[2016-11-14] MEDS: LORATADINE 10 MG TABLET PO SCH (08:42)
[2016-11-14] MEDS: hydrALAZINE HCL 50 MG TABLET PO SCH ×3 (08:42→17:48)
[2016-11-14] MEDS: METOPROLOL TARTRATE 25 MG TABLET PO SCH ×2 (08:43→17:48)
[2016-11-14] MEDS: ISOSORBIDE DINITRATE (20MG) 20 MG TABLET PO SCH ×2 (08:43→17:47)
[2016-11-14] MEDS: Z GUARD REMEDY 2 OZ OINT TP SCH (10:38)
--- NOTE | 2016-11-14 11:00 | NUR ---
PT. SPOKE WITH DR. DUONG. DR. DUONG EXPLAINED REGARDING STRESS TEST. PT. SIGNED CONSENT.
[2016-11-14] MEDS: POTASSIUM CHLORIDE 20 MEQ TAB.PRT.SR PO SCH (11:24)
[2016-11-14] MEDS ORDERED: Magnesium 1GM/D5W 100ML PREMIX 100 ML IV SCH (12:00)
[2016-11-14] MEDS ORDERED: MAGNESIUM OXIDE 400 MG TABLET PO ONE (12:00)
--- NOTE | 2016-11-14 12:18 | NUR ---
RT Patient is on oxygen 2L, NC. Patient alert and oriented. Breath sounds equal. Tx. given as ordered and tolerated very well. No adverse reactions. Ambu bag at the bed side.
[2016-11-14 14:09] LABS: *HIV-1 RNA BY PCR 110 copies/mL (.); *HIV-1 log10 RNA 2.041 (.)
--- NOTE | 2016-11-14 16:10 | NUR ---
PT. WENT TO THE RADIOLOGY ROOM BY WHEELCHAIR FOR BONE SURVEY.
--- NOTE | 2016-11-14 17:45 | NUR ---
PT. RETURNED ROOM AFTER TAKING A BONE SURVEY.
[2016-11-14 17:49] VITALS: BP 137/84
--- NOTE | 2016-11-14 18:26 | NUR ---
CLOSING NOTE PT. AWAKE, ALERT AND ORIENTED X3. DENIED PAIN AND SOB. SITTING ON A CHAIR EACH MEAL TIME. CALL LIGHT WITHIN REACH. MONITOR CLOSELY.
[2016-11-14] MEDS ORDERED: RILP25TA PO (19:05)
[2016-11-14] MEDS ORDERED: DOLU50TA PO (19:05)
[2016-11-14 20:00] VITALS: BP 123/75
[2016-11-14 20:17] VITALS: BP 123/75
[2016-11-14] MEDS: LORAZEPAM INJ 2 MG/ML VIAL IVP PRN (22:31)
--- NOTE | 2016-11-14 22:38 | NUR ---
RN NOTES PATIENT ANXIOUS, WITH SLIGHT SOB. ADMINISTERED ATIVAN .5MG PRN ORDERED. YEISON DYE AWARE. WILL CONTINUE TO MONITOR.
--- NOTE | 2016-11-15 | NUR ---
AUTOMATIC CIGAR WRAPPER TENDER/NOTES PT SLEEPING COMFORTABLY IN BED WITHOUT ANY ACUTE DISTRESS NOTED. KEPT HIM COMFORTABLE AT ALL TIMES. PLACE CALL LIGHT AT REACH.
[2016-11-15] MEDS: ALBUTEROL FS 2.5 MG/3 ML VIAL.NEB NEB SCH ×4 (02:57→15:16)
--- NOTE | 2016-11-15 06:50 | NUR ---
MS [employer] HELPER CLOSING NOTES PT BACK TO SLEEP AFTER SPONGES BATH RENDERED WITH THE HELPED OF MERE , SKIN CARE ALSO DONE . STABLE TYRONE THE AFTER ATIVAN GIVEN LAST NIGHT. KEPT HIM COMFORTABLE AT ALL TIMES. PLACE CALL LIGHT AT REACH. BED ALARM SET FOR SAFETY. ENDORSE TO AM NURSE FOR CONTINUITY OF CARE.
[2016-11-15 08:00] VITALS: BP_SYST 149; BP_DIAS 69; BP_DIAS 79
[2016-11-15] MEDS ORDERED: REGADENOSON 0.4 MG/5 ML DISP.SYRIN IVP ONE (08:00)
--- NOTE | 2016-11-15 08:00 | NUR ---
MS RN NOTE PT. AWAKE, ALERT AND ORIENTED X3. NPO FOR STRESS TEST. CALL LIGHT WITHIN REACH. SIDE RAILS UP. MONITOR CLOSELY.
--- NOTE | 2016-11-15 08:40 | NUR ---
PT. WENT TO NUCLEAR MED ROOM TO TAKE LEX[place]AN STRESS TEST.
--- NOTE | 2016-11-15 09:40 | NUR ---
PT. RETUNED ROOM AFTER TAKING FIRST PART OF STRESS TEST. HAD BREAKFAST THAN TOOK MEDS.
[2016-11-15] MEDS: PANTOPRAZOLE 40 MG VIAL IV SCH (09:50)
[2016-11-15] MEDS: Z GUARD REMEDY 2 OZ OINT TP SCH (09:51)
[2016-11-15] MEDS: LORATADINE 10 MG TABLET PO SCH (09:56)
[2016-11-15] MEDS: NYSTATIN (PYXIS) 500,000 UNIT/5 ML ORAL.SUSP PO SCH ×3 (09:56→17:27)
[2016-11-15] MEDS: hydrALAZINE HCL 50 MG TABLET PO SCH ×3 (09:57→17:27)
[2016-11-15] MEDS: METOPROLOL TARTRATE 25 MG TABLET PO SCH ×2 (09:57→17:27)
[2016-11-15] MEDS: ISOSORBIDE DINITRATE (20MG) 20 MG TABLET PO SCH ×2 (09:58→17:28)
[2016-11-15] MEDS: POTASSIUM CHLORIDE 20 MEQ TAB.PRT.SR PO SCH (10:30)
--- NOTE | 2016-11-15 10:51 | NUR ---
PT. WENT TO STRESS TEST TO TAKE 2ND PART.
--- NOTE | 2016-11-15 10:56 | NUR ---
POTASSIUM LEVEL 4.8. HOLD K-DUR TODAY.
[2016-11-15] MEDS ORDERED: MAGNESIUM OXIDE 400 MG TABLET PO ONE (12:00)
[2016-11-15 16:00] VITALS: BP 119/73
[2016-11-15] MEDS ORDERED: PNEUMOCOCCAL 23-VAL P-SAC VAC 0.5 ML VIAL SQ ONE (16:00)
[2016-11-15 17:28] VITALS: BP 140/77
--- NOTE | 2016-11-15 18:46 | NUR ---
PT. AWAKE, ALERT AND ORIENTED X3. DENIED PAIN AND SOB. SPOKE WITH JES(NEPHEW) REGARDING TRANSFER. PT WILL BE TRANSFER BY AMBULANCE.
[2016-11-17 11:22] LABS: HEPATITIS Be AB Negative (Negative)
[2016-11-20 10:19] LABS: *HCV QUANT HCV Not Detected IU/mL (.)
== END 2016-11-15 18:50 | DRG 280 ==
LOC: ER 13:55 → TELE 16:32 → MED 11-09 01:27
PROVIDERS: ADMIT Internal Medicine; ATTEND Internal Medicine
DX: I21.4 Non-ST elevation (NSTEMI) myocardial infarction (principal); N17.0 Acute kidney failure with tubular necrosis; B37.0 Candidal stomatitis; E44.0 Moderate protein-calorie malnutrition; N18.4 Chronic kidney disease, stage 4 (severe); E87.1 Hypo-osmolality and hyponatremia; C90.00 Multiple myeloma not having achieved remission; I12.9 Hypertensive chronic kidney disease with stage 1 through stage 4 chronic kidney disease, or unspecified chronic kidney disease; L25.9 Unspecified contact dermatitis, unspecified cause; E87.6 Hypokalemia; D69.6 Thrombocytopenia, unspecified; D72.1 Eosinophilia; K80.20 Calculus of gallbladder without cholecystitis without obstruction; E88.09 Other disorders of plasma-protein metabolism, not elsewhere classified; Z98.890 Other specified postprocedural states; L70.9 Acne, unspecified; L03.031 Cellulitis of right toe; R74.0 Nonspecific elevation of levels of transaminase and lactic acid dehydrogenase [LDH]; R53.1 Weakness; D72.810 Lymphocytopenia
CPT/HCPCS: 36415; 70450-TC; 71010-TC; 76700-TC; 76770-TC; 77075-TC; 80048-TC; 80053-TC; 80074; 80076-TC; 81000-TC; 82553-TC; 82570-TC; 83605-TC; 83615-TC; 83735-TC; 84100-TC; 84132-TC; 84155; 84165; 84300-TC; 84484-TC; 85025-TC; 85385-TC; 85396; 85610-TC; 85652-TC; 85730-TC; 86140-TC; 86360; 86701; 86704; 86706; 86707; 86708; 86709; 87040-TC; 87086-TC; 87177; 87209; 87340; 87350; 87400; 87536; 90732; 93307-TC; 94799-TC; 97001-TC; 97116-TC; 97530-TC; A4606; A9502; C9113; J2060; J2405; J2543; J2785; J3370; J3475; J3490; J7030; J7060; Z7610

== ENCOUNTER 2017-04-29 12:11 | Inpatient (IN) | payer MEDICARE ==
[~2017-04-29] VITALS: Ht 170.2 cm; Wt 73.0 kg
[~2017-04-29 12:11] MED LIST: AMLO10TA4 PO; ATOR40TA PO; CHOL100044 PO; CLOP75TA2 PO; DIPH25CA83 PO; DOLU50TA PO; FAMO40TA7 PO; KETO15CR TP; LEVO25TA9 PO; LOSA50TA21 PO; METO25TA20 PO; RILP25TA PO; TRIA15CR3 TP; TRIA1TAB3 PO
--- NOTE | 2017-04-29 12:19 | NUR ---
BIBRA 878 FROM HOME C/O 03/14 EPIGASTRIC PAIN, ABD DISTENDED, N/V SINCE YESTERDAY. PT DIAPHORETIC, RESP EVEN AND UNLABORED, PARTNER AT THE BEDSIDE. AWAITING MD CALHOUN
--- NOTE | 2017-04-29 12:23 | NUR ---
FRANCISCO OLSON AT BEDSIDE FOR EVAL
[2017-04-29] MEDS ORDERED: ONDANSETRON HCL/PF - ER 4 MG/2 ML VIAL IV STA (12:24)
[2017-04-29] MEDS ORDERED: MORPHINE SULFATE INJ 2 MG/ML DISP.SYRIN IV ONE (12:30)
[2017-04-29] MEDS ORDERED: MORPHINE SULFATE INJ 10 MG/ML DISP.SYRIN ONE (12:36)
[2017-04-29] MEDS ORDERED: ONDANSETRON HCL/PF 4 MG/2 ML VIAL ONE (12:36)
[2017-04-29 12:42] LABS: BASOPHILS % (AUTO) 0.3 % (0.0-2.0); EOSINOPHILS # (AUTO) 0.1 /CMM (0.0-0.7); EOSINOPHILS % (AUTO) 1.4 % (0.0-6.0); HEMATOCRIT 53 % (39-51); HEMOGLOBIN 18.1 g/dL (13.5-17.5); LYMPHOCYTES # (AUTO) 1.5 /CMM (0.8-4.8); LYMPHOCYTES % (AUTO) 14.3 % (20.0-44.0); MEAN CORPUSCULAR HEMOGLOBIN 32 PG (26.0-33.0); MEAN CORPUSCULAR HGB CONC 34 g/dl (31.0-36.0); MEAN CORPUSCULAR VOLUME 92 fL (80-96); MONOCYTES # (AUTO) 0.3 /CMM (0.1-1.30); MONOCYTES % (AUTO) 3.1 % (2.0-12.0); NEUTROPHILS # (AUTO) 8.6 /CMM (1.8-8.9); NEUTROPHILS % (AUTO) 80.9 % (43.0-81.0); PLATELET COUNT (AUTO) 213 /CMM (150-450); RDW COEFFICIENT OF VARIATION 12.5 (11.5-15.0); RED BLOOD CELL COUNT(AUTO) 5.71 MIL/uL (4.5-6.0); WHITE BLOOD COUNT (AUTO) 10.5 K/uL (4.3-11.0)
[2017-04-29 12:52] LABS: CALCIUM, SERUM 9.9 mg/dL (8.5-10.1); CARBON DIOXIDE 27 mmol/L (21-32); CHLORIDE 102 mmol/L (98-107); CREATININE 2.8 mg/dL (0.6-1.3); GLUCOSE 132 mg/dL (74-106); SODIUM SERUM 137 mmol/L (136-145); UREA NITROGEN, BLOOD 30 mg/dL (7-18)
[2017-04-29 12:54] LABS: INR 0.94 (0.87-1.13); PROTHROMBIN TIME 9.8 SECS (9.5-12.7)
--- NOTE | 2017-04-29 12:56 | NUR ---
PT TO CT VIA JESSICA IN STABLE CONDITION
[2017-04-29 12:57] LABS: ALANINE AMINOTRANSFERASE 21 U/L (12-78); ALBUMIN 3.6 g/dL (3.4-5.0); ALKALINE PHOSPHATASE 95 U/L (46-116); ASPARTATE AMINOTRANSFERASE 28 U/L (15-37); BILIRUBIN,DIRECT 0.2 mg/dL (0.0-0.2); BILIRUBIN,TOTAL 0.7 mg/dL (0.2-1.0); TOTAL PROTEIN, SERUM 9.3 g/dL (6.4-8.2)
[2017-04-29 12:59] LABS: TROPONIN I < 0.017 ng/mL (0.00-0.056)
[2017-04-29] MEDS ORDERED: IV NS 0.9% 1,000 ML BAG IV ONE (13:00)
--- NOTE | 2017-04-29 13:43 | NUR ---
PAGED JANE MENDOZA DNP FOR PANEL ADMISSION
--- NOTE | 2017-04-29 14:01 | NUR ---
FC INSERTED X1 ATTEMPT, WITH CLEAR YELLOW URINE OUTPUT; URINE SAMPLE SENT TO LAB. NGT #[id number] INSERTED R NARE, VERIFIED PLACEMENT WITH 2ND RN. 800 CC DARK BROWN OUTPUT NOTED. N/V AND PAIN IMPROVED.
[2017-04-29] MEDS ORDERED: ASCO500T9 PO (14:13)
[2017-04-29] MEDS ORDERED: AMIN30LI4 PO (14:13)
[2017-04-29] MEDS ORDERED: LEVO200T8 PO (14:13)
[2017-04-29 14:46] LABS: BILIRUBIN,URINE Negative (NEGATIVE); BLOOD, URINE Small Ery/uL (NEGATIVE); COLOR,URINE Yellow (YELLOW); KETONES,URINE Negative (NEGATIVE); LEUKOCYTE ESTERASE ,URINE Negative (NEGATIVE); NITRITE, URINE Negative (NEGATIVE); PROTEIN,URINE 100 mg/dl (NEGATIVE); UGLUCOSE Negative (NEGATIVE); UROBILINOGEN,URINE 0.2 EU/dL (0.2)
[2017-04-29 14:47] LABS: APPEARANCE,URINE Hazy (CLEAR)
[2017-04-29 14:51] LABS: BACTERIA,URINE None seen /HPF (None Seen); SQUAMOUS EPITHELIAL CELL,UR Few /HPF (None Seen)
[2017-04-29 15:10] VITALS: BP 155/89
--- NOTE | 2017-04-29 15:10 | NUR ---
RN NOTES RECEIVED PT FROM ER IN ROOM 119-2, A/Ox3-4, RESPIRATION EVEN AND UNLABORED , NO SOB NOTED , NGT TO LIS WITH SMALL AMOUNT OF GREENISH GASTRIC CONTENT, R AC IV SITE G 20 CDI, VEGA TO GRAVITY DRAINING TO GRAVITY WITH YELLOW CLEAR URINE, PT AT REST AT THIS TIME , SR UP x3, CALL LIGHT WITHIN EASY REACH, CONTINUE TO MONITOR PT CLOSELY AND NOTIFY MD FOR ANY SIGNIFICANT CHANGES.
--- NOTE | 2017-04-29 15:20 | NUR ---
REPORT GIVEN TO MIGUELINA/ELIZABETH AND TRANSFERED TO FLOOR VIA [employer]S PROTOCOL.
[2017-04-29] MEDS ORDERED: ONDANSETRON HCL/PF 4 MG/2 ML VIAL IVP PRN (17:00)
[2017-04-29] MEDS ORDERED: HYDROCODONE/APAP 5/325MG 1 EACH TABLET PO PRN (17:00)
[2017-04-29] MEDS ORDERED: ACETAMINOPHEN 325 MG TABLET PO PRN (17:00)
[2017-04-29] MEDS ORDERED: MAGNESIUM HYDROXIDE 30 ML UDC PO PRN (17:00)
[2017-04-29] MEDS ORDERED: MORPHINE SULFATE INJ 2 MG/ML DISP.SYRIN IV PRN (17:00)
[2017-04-29] MEDS ORDERED: ZOLPIDEM TARTRATE 5 MG TABLET PO PRN (17:00)
[2017-04-29] MEDS ORDERED: Z GUARD REMEDY 2 OZ OINT TP PRN (17:00)
[2017-04-29] MEDS: PROSOURCE / PROSTAT (PYXIS) 30 ML UDC GT SCH (17:43)
[2017-04-29] MEDS: IV NS 0.9% 1,000 ML IV PRN (17:43)
[2017-04-29] MEDS: METOPROLOL TARTRATE 50 MG TABLET PO SCH (17:47)
--- NOTE | 2017-04-29 18:32 | NUR ---
RN NOTES PT STABLE , RESPIRATION EVEN AND UNLABORED, NGT TO LIS WITH SMALL AMOUNT OF GREENISH STOMACH CONTENT, NO DISTRESS NOTED, WILL ENFORCE TO SPECIAL TESTER RN FOR THE CONTINUITY OF CARE .
[2017-04-29 20:00] VITALS: BP 139/84
[2017-04-29] MEDS: LEVOFLOXACIN 500 MG /D5W 100ML 500 MG in PREMIX 1 EA IV SCH (20:00)
--- NOTE | 2017-04-29 20:00 | NUR ---
ms rn notes received pts on bed alert and responsive , with ngt tube intact and patent connected to low interment suction draining with greenish gastris content , all needs attended too , no sob no distress noted , on npo status , iv atb given as ordered , v/s stable afebrile with lac g#20 with ivf of ns at 100cc/hr well infusing hob elevated for aspiration precaution . for small bowel follow through on am , npo status maintained, will continue to monitor pts.
[2017-04-29] MEDS: METRONIDAZOLE 500MG/ NS 100ML 500 MG in PREMIX 1 EA IV SCH (20:17)
[2017-04-29] MEDS: ATORVASTATIN 40 MG TABLET PO SCH (21:33)
--- NOTE | 2017-04-29 22:20 | NUR ---
ms rn notes seen by dr torres at bedside ,requesting for medical recods from outpatient d/t pts condition multiple myeloma ,unable to call family no phone number available, will endorse to rn dy shift for social service consult.
[2017-04-30] MEDS: METRONIDAZOLE 500MG/ NS 100ML 500 MG in PREMIX 1 EA IV SCH ×3 (03:08→20:29)
[2017-04-30 04:00] VITALS: BP 123/80
[2017-04-30] MEDS: IV NS 0.9% 1,000 ML IV PRN ×2 (06:34→23:04)
--- NOTE | 2017-04-30 07:15 | NUR ---
MS RN NOTE: RECEIVED PT AWAKE IN BED. NGT INTACT AND PATENT ON LOW INTERMITTENT SUCTION WITH BROWN DRAINAGE. ON 02 2LPM VIA NC WITH RESPIRATIONS EVEN AND UNLABORED. LAC #20 INTACT AND PATENT WITH NS RUNNING AT 100CC/HR. FC DRAINING TO GRAVITY WITH YELLOW URINE. DVT PUMPS NOTED. HOB ELEVATED, BED LOW, LOCKED WITH CALL LIGHT WITHIN REACH. WILL CONT TO MONITOR.
[2017-04-30] MEDS: LEVOTHYROXINE SODIUM 100 MCG TABLET PO SCH (07:30)
[2017-04-30] MEDS: PANTOPRAZOLE 40 MG TABLET.DR PO SCH (07:30)
[2017-04-30 08:00] VITALS: BP 137/82
[2017-04-30] MEDS: PROSOURCE / PROSTAT (PYXIS) 30 ML UDC GT SCH ×3 (08:02→17:36)
[2017-04-30] MEDS: TRIAMTERENE/HYDROCHLOROTHIAZID (37.5/25MG) 1 UDCAP PO SCH (08:02)
[2017-04-30] MEDS: METOPROLOL TARTRATE 50 MG TABLET PO SCH ×2 (08:03→17:36)
[2017-04-30] MEDS: AMLODIPINE BESYLATE 10 MG TABLET PO SCH (08:03)
[2017-04-30] MEDS: ASCORBIC ACID 500 MG TABLET PO SCH (08:04)
[2017-04-30] MEDS: CHOLECALCIFEROL 1,000 UNIT TABLET (VIT D3) PO SCH (08:04)
[2017-04-30] MEDS ORDERED: BARIUM SULFATE 98% 135 ML SUSP.RECON PO ONE (08:12)
[2017-04-30] MEDS ORDERED: DIATR MEGLU/DIATRIZOATE SODIUM 120 ML BOTTLE (GASTROGRAPHIN) ONE (08:12)
[2017-04-30] MEDS ORDERED: DOLUTEGRAVIR SODIUM 50 MG PO SCH (09:00)
[2017-04-30] MEDS ORDERED: [UNRECOGNIZED DRUG - OTHER] PO SCH (09:00)
[2017-04-30 09:26] LABS: BASOPHILS % (AUTO) 0.3 % (0.0-2.0); EOSINOPHILS # (AUTO) 0.4 /CMM (0.0-0.7); EOSINOPHILS % (AUTO) 3.7 % (0.0-6.0); HEMATOCRIT 49 % (39-51); HEMOGLOBIN 16.5 g/dL (13.5-17.5); LYMPHOCYTES # (AUTO) 1.9 /CMM (0.8-4.8); LYMPHOCYTES % (AUTO) 19.4 % (20.0-44.0); MEAN CORPUSCULAR HEMOGLOBIN 32 PG (26.0-33.0); MEAN CORPUSCULAR HGB CONC 34 g/dl (31.0-36.0); MEAN CORPUSCULAR VOLUME 93 fL (80-96); MONOCYTES # (AUTO) 0.8 /CMM (0.1-1.30); MONOCYTES % (AUTO) 8.5 % (2.0-12.0); NEUTROPHILS # (AUTO) 6.7 /CMM (1.8-8.9); NEUTROPHILS % (AUTO) 68.1 % (43.0-81.0); PLATELET COUNT (AUTO) 174 /CMM (150-450); RDW COEFFICIENT OF VARIATION 13.3 (11.5-15.0); RED BLOOD CELL COUNT(AUTO) 5.21 MIL/uL (4.5-6.0); WHITE BLOOD COUNT (AUTO) 9.9 K/uL (4.3-11.0)
[2017-04-30 09:42] LABS: CALCIUM, SERUM 8.7 mg/dL (8.5-10.1); CREATININE 2.3 mg/dL (0.6-1.3); PHOSPHORUS 2.8 mg/dL (2.5-4.9); POTASSIUM 4.3 mmol/L (3.5-5.1)
[2017-04-30 09:47] LABS: MAGNESIUM 1.2 mg/dL (1.8-2.4)
--- NOTE | 2017-04-30 09:50 | NUR ---
RN NOTE: PT TO XR.
--- NOTE | 2017-04-30 10:30 | NUR ---
MS RN NOTE: FANI MENDOZA AWARE OF LAB LEVEL MG 1.2. PER JANE, WILL CORRECT ITSELF. NO ORDERS.
[2017-04-30 10:31] LABS: THYROID STIMULATING HORMONE 0.104 uIU/mL (0.358-3.74)
--- NOTE | 2017-04-30 11:15 | NUR ---
MS RN NOTE: PT BACK FROM XR.
--- NOTE | 2017-04-30 11:20 | NUR ---
MS RN NOTE: PER RADIOLOGY, OK TO RESUME PLAN OF CARE.
--- NOTE | 2017-04-30 11:39 | NUR ---
RN NOTE: PER PT, NG TUBE FELL OFF.
--- NOTE | 2017-04-30 11:46 | NUR ---
MS RN NOTE: CHARGE NURSE NOTIFIED OF PT REMOVED NG TUBE; WAIT FOR MD ORDERS IF WANTS TO CONT.
--- NOTE | 2017-04-30 13:00 | NUR ---
MS RN NOTE: US TECH AT BEDSIDE.
--- NOTE | 2017-04-30 15:00 | NUR ---
RN NOTE: NGT HELD PER ORDER.
[2017-04-30 16:00] VITALS: BP 135/75
--- NOTE | 2017-04-30 16:30 | NUR ---
MS RN NOTE: FANI MENDOZA AWARE OF HOME FORMULARY MEDS; HOLD FOR NOW. PHARM INFORMED.
--- NOTE | 2017-04-30 17:30 | NUR ---
MS RN NOTE: PT'S NEPHEW DESMOND BROUGHT 5 WISHES FORM. FORM PLACED IN CHART. DESMOND'S PHONE NUMBER [phone].
--- NOTE | 2017-04-30 19:38 | NUR ---
MS RN NOTE: NO ACUTE CHANGES DURING SHIFT. PATIENT A&OX3, DENIED PAIN. ON O2 2LPM VIA NC. LAC #20 INTACT AND PATENT WITH NS RUNNING AT 100CC/HR. FC DRAINING TO GRAVITY WITH YELLOW URINE. BED LOW, LOCKED WITH CALL LIGHT WITHIN REACH. ORDERS CARRIED OUT. REPORT GIVEN TO ICE CREAM DISPENSER NURSE FOR YAJAIRA.
--- NOTE | 2017-04-30 19:41 | NUR ---
MS-1/SUPERVISOR SPECIAL EFFECTS REPORT TO [facility] FOR CONT OF CARE.
[2017-04-30 20:00] VITALS: BP 132/86
[2017-04-30] MEDS: LEVOFLOXACIN 500 MG /D5W 100ML 500 MG in PREMIX 1 EA IV SCH (20:29)
[2017-04-30] MEDS: ATORVASTATIN 40 MG TABLET PO SCH (21:42)
[2017-05-01] MEDS: METRONIDAZOLE 500MG/ NS 100ML 500 MG in PREMIX 1 EA IV SCH ×2 (03:53→12:51)
[2017-05-01 04:00] VITALS: BP 136/75
--- NOTE | 2017-05-01 07:42 | NUR ---
RN NOTES RECEIVED PT FROM TALENT ACQUISITION MANAGER A&O3, 2L NASAL CANNULA NO SOB OR DISTRESS NOTED. LAC 20 GUAGE IV SITE DRY AND INTACT. NS RUNNING AT 100ML/HR. PT COMPLAINS OF VEGA DISCOMFORT, DR GOTTI MADE AWARE GOT AN OK TO REMOVE VEGA. BED LOCKED AND IN LOWEST POSITION, SIDE RAILS UPX3, CALL LIGHT WITHIN REACH. WILL CONT TO MONITOR.
[2017-05-01 08:00] VITALS: BP 151/89
[2017-05-01] MEDS: ASCORBIC ACID 500 MG TABLET PO SCH (09:28)
[2017-05-01] MEDS: AMLODIPINE BESYLATE 10 MG TABLET PO SCH (09:28)
[2017-05-01] MEDS: CHOLECALCIFEROL 1,000 UNIT TABLET (VIT D3) PO SCH (09:28)
[2017-05-01] MEDS: TRIAMTERENE/HYDROCHLOROTHIAZID (37.5/25MG) 1 UDCAP PO SCH (09:28)
[2017-05-01] MEDS: METOPROLOL TARTRATE 50 MG TABLET PO SCH ×2 (09:28→16:38)
[2017-05-01] MEDS: LEVOTHYROXINE SODIUM 100 MCG TABLET PO SCH (09:28)
[2017-05-01] MEDS: PANTOPRAZOLE 40 MG TABLET.DR PO SCH (09:29)
[2017-05-01] MEDS: PROSOURCE / PROSTAT (PYXIS) 30 ML UDC GT SCH ×3 (09:30→16:39)
[2017-05-01 10:32] LABS: BASOPHILS % (AUTO) 0.3 % (0.0-2.0); EOSINOPHILS # (AUTO) 0.4 /CMM (0.0-0.7); EOSINOPHILS % (AUTO) 5.7 % (0.0-6.0); HEMATOCRIT 44 % (39-51); HEMOGLOBIN 14.9 g/dL (13.5-17.5); LYMPHOCYTES # (AUTO) 1.7 /CMM (0.8-4.8); LYMPHOCYTES % (AUTO) 25.2 % (20.0-44.0); MEAN CORPUSCULAR HEMOGLOBIN 31 PG (26.0-33.0); MEAN CORPUSCULAR HGB CONC 34 g/dl (31.0-36.0); MEAN CORPUSCULAR VOLUME 92 fL (80-96); MONOCYTES # (AUTO) 0.8 /CMM (0.1-1.30); MONOCYTES % (AUTO) 11.4 % (2.0-12.0); NEUTROPHILS # (AUTO) 3.8 /CMM (1.8-8.9); NEUTROPHILS % (AUTO) 57.4 % (43.0-81.0); PLATELET COUNT (AUTO) 159 /CMM (150-450); RED BLOOD CELL COUNT(AUTO) 4.78 MIL/uL (4.5-6.0); WHITE BLOOD COUNT (AUTO) 6.6 K/uL (4.3-11.0)
[2017-05-01 10:41] LABS: ALBUMIN 2.5 g/dL (3.4-5.0); BILIRUBIN,TOTAL 0.4 mg/dL (0.2-1.0); CALCIUM, SERUM 8.4 mg/dL (8.5-10.1); CREATININE 2.1 mg/dL (0.6-1.3); PHOSPHORUS 2.2 mg/dL (2.5-4.9); POTASSIUM 3.7 mmol/L (3.5-5.1); TOTAL PROTEIN, SERUM 7.1 g/dL (6.4-8.2)
[2017-05-01 10:48] LABS: MAGNESIUM 1.1 mg/dL (1.8-2.4)
[2017-05-01] MEDS: Magnesium 1GM/D5W 100ML PREMIX 100 ML IV SCH ×4 (11:21→17:58)
--- NOTE | 2017-05-01 12:00 | NUR ---
RN NOTES PT COMPLAINING OF HEARTBURN, SPOKE TO JANE MENDOZA GOT ORDER FOR MAALOX Q4 HRS.
[2017-05-01] MEDS: MAG HYDROX/AL HYDROX/SIMETH 30 ML UDC PO PRN ×2 (12:16→12:18)
[2017-05-01] MEDS ORDERED: Magnesium 1 GM/2 ML VIAL IV ONE (15:00)
--- NOTE | 2017-05-01 15:00 | NUR ---
RN NOTES PER JANE MENDOZA PT OK TO GO HOME.
[2017-05-01] MEDS: IV NS 0.9% 1,000 ML IV PRN (15:11)
[2017-05-01 16:00] VITALS: BP_SYST 120; BP_DIAS 53; BP_DIAS 83
[2017-05-01] MEDS ORDERED: NEUTRA PHOS 1 POWD.PACKET NG ONE (16:00)
[2017-05-01 16:38] VITALS: BP 120/53
--- NOTE | 2017-05-01 17:00 | NUR ---
RN NOTES PT STATES HE HIT HIS TOE WHILE GETTING HIS URINAL. NO REDNESS NOTED. ICE APPLIED. PT REPORTS RELIEF.
--- NOTE | 2017-05-01 18:38 | NUR ---
RN NOTES PT RESTING COMFORTABLY, LAST BAG OF MAGNESIUM RUNNING THROUGH IV. NO SOB OR DISTRESS NOTED. PT WILL BE DISCHARGED HOME AFTER COMPLETE VIA TAXI. ALL NEEDS MET. CALL LIGHT WITHIN REACH, SIDE RAILS UPX3, BED LOCKED AND IN LOWEST POSITION. WILL ENDORSE TO ONCOMING SHIFT.
--- NOTE | 2017-05-01 19:20 | NUR ---
RN NOTE RECEIVED PT IN NO ACUTE DISTRESS IN BED. PT IS AWAITING DISCHARGE VIA TAXI. PT ABLE TO AMBULATE AD MANOJ AND HAS A STEADY GAIT. AWAITING [facility]AXI ARRIVAL.
--- NOTE | 2017-05-01 19:45 | NUR ---
RN NOTE PT LEFT HOSPITAL IN STABLE CONDITION VIA TAX[facility] HOME.
== END 2017-05-01 19:45 | disposition home or self-care (01) | DRG 388 ==
LOC: ER 12:13 → MEDSG1 14:45
PROVIDERS: ADMIT Nurse Practitioner Acute Care; ATTEND Nurse Practitioner Acute Care
DX: K56.60 Unspecified intestinal obstruction (principal); N17.0 Acute kidney failure with tubular necrosis; C90.00 Multiple myeloma not having achieved remission; E03.9 Hypothyroidism, unspecified; I12.9 Hypertensive chronic kidney disease with stage 1 through stage 4 chronic kidney disease, or unspecified chronic kidney disease; I25.10 Atherosclerotic heart disease of native coronary artery without angina pectoris; I25.2 Old myocardial infarction; M77.9 Enthesopathy, unspecified; I51.7 Cardiomegaly; N18.9 Chronic kidney disease, unspecified; Z88.1 Allergy status to other antibiotic agents; Z88.0 Allergy status to penicillin
CPT/HCPCS: 36415; 71010-TC; 71250-TC; 74250-TC; 80048-TC; 80053-TC; 80061-TC; 80076-TC; 81000-TC; 83735-TC; 84100-TC; 84443-TC; 84484-TC; 85025-TC; 85730-TC; 87081-TC; 87086-TC; 93970-TC; A4216; A4606; J1956; J2270; J2405; J3475; J3490; J7030; Q9963; Z7610